=== PATIENT | male | born 1960 | race Caucasian/White ===

== ENCOUNTER → 2021-04-14 11:56 | Outpatient (CLI) | payer MEDICARE, SELFPAY ==
[2021-04-14 13:24] LABS: COVID19 -Nasal RAPID Negative (Negative)
== END ==
PROVIDERS: Referring Provider Nurse Practitioner Family; Visit Provider Nurse Practitioner Family
DX: Z20.822 Contact with and (suspected) exposure to COVID-19 (principal)
CPT/HCPCS: 87635

== ENCOUNTER → 2021-06-09 13:43 | Outpatient (CLI) | payer MEDICARE, SELFPAY ==
--- NOTE | 2021-06-09 | DI.ECHO.S_ITS ---
[facility]---------+ [facility] +---------+ : : 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 The left ventricle is normal in size and wall thickness. Left ventricular systolic function is borderline reduced. The ejection fraction is estimated to be 45-50%. There is borderline global hypokinesis of the left ventricle. Diastolic function could not be accurately assessed due to atrial fibrillation. The right ventricle is mildly dilated. The right ventricular systolic function is normal. The right ventricular systolic pressure is estimated to be at least 28 mmHg based on an estimated right atrial pressure of 3 mm Hg. The left atrium is severely dilated. The right atrium is mildly dilated. There is mild mitral regurgitation. There is mild aortic regurgitation. There is no other significant valvular heart disease. The aortic root is normal size. Procedure: A two-dimensional transthoracic echocardiogram with color flow and Doppler was performed. The study quality was technically adequate. There is no prior echocardiogram noted for this patient. The patient had occasional PVCs during the exam. The patient was in atrial fibrillation with heart rates between 75-86 bpm during the exam. Left Ventricle: The left ventricle is normal in size and wall thickness. Left ventricular systolic function is borderline reduced. The ejection fraction is estimated to be 45-50%. There is borderline global hypokinesis of the left ventricle. Diastolic function could not be accurately assessed due to atrial fibrillation. Right Ventricle: The right ventricle is mildly dilated. The right ventricular systolic function is normal. Atria: The left atrium is severely dilated. The right atrium is mildly dilated. There is no Doppler evidence for an interatrial shunt. Mitral Valve: The mitral valve is normal in structure and function. There is mild mitral regurgitation. Aortic Valve: The aortic valve is trileaflet. The aortic valve opens well. There is no aortic valve stenosis. There is mild aortic regurgitation. Tricuspid Valve: The tricuspid valve is normal in structure and function. There is mild tricuspid regurgitation. The right ventricular systolic pressure is estimated to be at least 28 mmHg based on an estimated right atrial pressure of 3 mm Hg. Pulmonic Valve: The pulmonic valve leaflets are thin and pliable; valve motion is normal. There is trace pulmonic regurgitation. There is no other significant valvular heart disease. Great Vessels: The aortic root is normal size. The ascending aorta is normal in size. The IVC is of normal diameter and collapses greater than 50% with a sniff. This suggests a low right atrial pressure of 3 mm Hg. Pericardium/ Pleura There is no pericardial effusion. There is no pleural effusion. MMode/2D Measurements & Calculations LVIDd: 5.5 cm LVOT diam: 2.3 cm LVIDs: 4.3 cm Ao root diam: 3.7 cm FS: 22.2 % asc Aorta Diam: 3.6 cm IVSd: 0.99 cm Ao Arch Diam (Prox Trans): 2.7 cm LVPWd: 0.99 cm LV romero. diameter/BSA (cm/m^2): 2.4 LV sys. diameter/BSA (cm/m^2): 1.8 LA A2 area: 33.1 cm2 RA long axis: 7.3 cm LA A4 area: 28.6 cm2 RA area: 26.3 cm2 LA length (vol): 6.5 cm RA vol: 80.1 ml LA vol: 123.7 ml RA : 34.2 ml/m2 LA vol index: 52.8 ml/m2 IVC diam: 1.5 cm RVD1 (basal): 4.3 cm TAPSE: 1.8 cm Doppler Measurements & Calculations Ao V2 max: 99.6 cm/sec LVOT Max : 69.8 cm/sec Ao V2 mean: 74.1 cm/sec LV V1 max P.0 mmHg Ao max P.0 mmHg LV V1 VTI: 12.4 cm Ao mean P.4 mmHg ANABELLA(I,D): 3.0 cm2 Ao V2 VTI: 17.5 cm ANABELLA(V,D): 3.0 cm2 sev ratio: 0.70 ANABELLA indexed to BSA (cm^2/m^2): 1.3 AI P1/2t: 851.4 msec AI dec slope: 139.5 cm/sec2 MV E max : 95.8 cm/sec TR max : 248.8 cm/sec MV A max : 1.4 cm/sec TR max P.8 mmHg MV E/A: 66.4 PA V2 max: 96.1 cm/sec Med Peak E' : 6.3 cm/sec PA V2 mean: 64.2 cm/sec E/E' med: 15.1 PA mean P.9 mmHg Lat Peak E' : 9.4 cm/sec PA pr(Accel): 32.8 mmHg E/E' lat: 10.2 E/e' average: 12.7 MV dec time: 0.23 sec SV(LVOT): 52.5 ml Reading Physician:01:[id number] AM
== END ==
PROVIDERS: PCP Internal Medicine; Referring Provider Nurse Practitioner Acute Care; Visit Provider Nurse Practitioner Acute Care
DX: I50.22 Chronic systolic (congestive) heart failure (principal); I08.3 Combined rheumatic disorders of mitral, aortic and tricuspid valves
CPT/HCPCS: 93306